=== PATIENT | female | born 1955 ===

== ENCOUNTER 2018-05-28 12:46 | Emergency (ER) | payer SELFPAY ==
[2018-05-28 13:02] VITALS: RESP 18; O2SAT 100
[2018-05-28] MEDS ORDERED: Iohexol 240 (50 ml) PO ONE (13:52)
[2018-05-28] MEDS ORDERED: Sodium Chloride 0.9% 1,000 ML IV STA (13:52)
--- NOTE | 2018-05-28 13:57 | ED PDOC ---
HPI: Abdomen Time Seen by Provider: 05/28/18 13:09 Chief Complaint (Nursing): Abdominal Pain Chief Complaint (Provider): Abdominal Pain History Per: Patient History/Exam Limitations: no limitations Onset/Duration Of Symptoms: Days Current Symptoms Are (Timing): Still Present Additional Complaint(s): 62 y/o female with no significant PMHx presents to the ED for evaluation of abdominal pain, onset two days ago. Patient reports pain is associated with nausea, vomiting, diarrhea, dizziness and fever since last night. Otherwise, patient denies chest pain, shortness of breath and leg pain. PMD: [facility] Past Medical History Reviewed: Historical Data, Nursing Documentation, Vital Signs Vital Signs: Last Vital Signs Temp 97.4 F L 05/28/18 13:00 Pulse 83 05/28/18 13:00 Resp 18 05/28/18 13:00 BP 144/90 05/28/18 13:00 Pulse Ox 100 05/28/18 13:00 - Medical History PMH: No Chronic Diseases - Surgical History Surgical History: No Surg Hx - Family History Family History: States: Unknown Family Hx - Immunization History Hx Influenza Vaccination: No Hx Pneumococcal Vaccination: No - Allergies Allergies/Adverse Reactions: Allergies Allergy/AdvReac Type Severity Reaction Status Date / Time pollen extracts Allergy ITCHING Verified 05/28/18 13:00 Review of Systems ROS Statement: Except As Marked, All Systems Reviewed And Found Negative Cardiovascular: Negative for: Chest Pain Respiratory: Negative for: Shortness of Breath Gastrointestinal: Positive for: Nausea, Vomiting, Abdominal Pain, Diarrhea Musculoskeletal: Negative for: Leg Pain Physical Exam - Reviewed Nursing Documentation Reviewed: Yes Vital Signs Reviewed: Yes - Physical Exam Appears: Positive for: Uncomfortable Head Exam: Positive for: ATRAUMATIC, NORMOCEPHALIC Skin: Positive for: Normal Color, Warm, Dry Eye Exam: Positive for: Normal appearance, EOMI, PERRL Neck: Positive for: Normal, Painless ROM Cardiovascular/Chest: Positive for: Regular Rate, Rhythm. Negative for: Murmur Respiratory: Positive for: Normal Breath Sounds. Negative for: Respiratory Distress Gastrointestinal/Abdominal: Positive for: Tenderness (Tenderness in the RUQ, LUQ and LLQ.) Extremity: Positive for: Normal ROM. Negative for: Deformity Neurological/Psych: Positive for: Awake, Alert, Oriented (x3). Negative for: Motor/Sensory Deficits - Laboratory Results Result Diagrams: 05/28/18 14:25 - ECG O2 Sat by Pulse Oximetry: 100 (RA) Pulse Ox Interpretation: Normal - Progress ED Course And Treament: 1451: Dr. David to take over care and fu with labs/imaging. Medical Decision Making Medical Decision Making: Time: 1351 Plan: -- CT Abd/Pelvis PO & IV Contrast -- CMP -- Lipase -- Troponin I -- ED Urine Dipstick -- CBC with Differentials -- Sodium Chloride IV 1000 mls/hr -- Iohexol 50 ml PO -- Pepcid 20 mg IVP -- Toradol 15 mf IVP -- Zofran Inj 4 mg IVP Scribe Attestation: Documented by Kate Baxter, acting as a scribe forHenrry Moon MD. Provider Scribe Attestation: All medical record entries made by the Scribe were at my direction and personally dictated by me. I have reviewed the chart and agree that the record accurately reflects my personal performance of the history, physical exam, medical decision making, and the department course for this patient. I have also personally directed, reviewed, and agree with the discharge instructions and disposition. Disposition - Clinical Impression Clinical Impression: Abdominal discomfort - Patient ED Disposition Is Patient to be Admitted: Transfer of Care - Disposition Disposition Time: 14:52 Condition: STABLE
[2018-05-28 14:35] LABS: BASO % 0.4 % (0.0-2.0); EOS % 0.1 % (0.0-4.0); LYMPH # 0.7 K/uL (1.0-4.3); LYMPH % 13.7 % (20.0-40.0); MEAN CELL VOLUME 93.6 fl (81.0-99.0); MEAN CORPUSCULAR HEMOGLOBIN 31.2 pg (27.0-31.0); MEAN CORPUSCULAR HGB CONC 33.3 g/dL (33.0-37.0); MEAN PLATELET VOLUME 8.7 fl (7.2-11.7); MONO # 0.4 K/uL (0.0-0.8); MONO % 8.4 % (0.0-10.0); NEUT # 3.9 K/uL (1.8-7.0); NEUT % 77.4 % (50.0-75.0); NRBC % 0.1 % (0.0-0.0); RBC 4.48 Mil/uL (3.80-5.20); RED CELL DISTRIBUTION WIDTH 14.7 % (11.5-14.5)
[2018-05-28 14:51] LABS: ALB/GLOB RATIO 1.2 (1.0-2.1); ALBUMIN 4.4 g/dL (3.5-5.0); ALT/SGPT 22 U/L (9-52); AST/SGOT 31 U/L (14-36); BLOOD UREA NITROGEN 16 mg/dl (7-17); CALCIUM 9.5 mg/dL (8.4-10.2); GFR NON-AFRICAN AMERICAN > 60; LIPASE 53 U/L (23-300)
--- NOTE | 2018-05-28 15:17 | ED PDOC ---
- Laboratory Results Result Diagrams: 05/28/18 14:25 05/28/18 14:25 Lab Results: Troponin I < 0.0120 ng/mL (0.00-0.120) 05/28/18 14:25 Total Bilirubin 0.8 mg/dl (0.2-1.3) 05/28/18 14:25 AST 31 U/L (14-36) 05/28/18 14:25 ALT 22 U/L (9-52) 05/28/18 14:25 Alkaline Phosphatase 136 U/L (38-126) H 05/28/18 14:25 Total Protein 8.0 G/DL (6.3-8.2) 05/28/18 14:25 Albumin 4.4 g/dL (3.5-5.0) 05/28/18 14:25 Globulin 3.6 gm/dL (2.2-3.9) 05/28/18 14:25 Albumin/Globulin Ratio 1.2 (1.0-2.1) 05/28/18 14:25 Lipase 53 U/L (23-300) 05/28/18 14:25 - ECG O2 Sat by Pulse Oximetry: 100 (RA) Pulse Ox Interpretation: Normal Medical Decision Making Medical Decision Making: Time: 1500 -- Patient endorsed to me by Dr. Moon, pending labs, CT, re-evaluation and final ER disposition. 17:00 CT Abdomen/Pelvis FINDINGS: LOWER THORAX: Unremarkable. LIVER: Normal size, contour and attenuation. Two nonspecific rounded low-attenuation lesions in the posterior right hepatic lobe, 1.2 and 1.5 cm, respectively. No biliary dilatation. GALLBLADDER AND BILE DUCTS: Unremarkable. PANCREAS: Unremarkable. No gross lesion or ductal dilatation. SPLEEN: Unremarkable. ADRENALS: Unremarkable. No mass. KIDNEYS AND URETERS: Unremarkable. No hydronephrosis. No solid mass. VASCULATURE: Unremarkable. No aortic aneurysm. No aortic atherosclerotic calcification or mural plaque present. BOWEL: Unremarkable. No obstruction. No gross mural thickening. APPENDIX: Normal appendix. PERITONEUM: Unremarkable. No free fluid. No free air. LYMPH NODES: Unremarkable. No enlarged lymph nodes. BLADDER: Unremarkable. REPRODUCTIVE: Unremarkable uterus. Pelvic varices are noted, left greater than right. This may correlate with pelvic congestion syndrome. BONES: No acute fracture. OTHER FINDINGS: None. IMPRESSION: No acute abnormality. Pelvic varices are noted which may correlate with pelvic congestion syndrome. Two small rounded nonspecific low-attenuation hepatic masses, 1.5 cm maximum diameter. No additional abnormality. 17:[address] shows pelvic varices/pelvic congestion. Patient is discharged home and was given referral [facility]. Return parameters discussed. Scribe Attestation: Documented by Kate Baxter, acting as a scribe Sharifa David MD. Provider Scribe Attestation: All medical record entries made by the Scribe were at my direction and personally dictated by me. I have reviewed the chart and agree that the record accurately reflects my personal performance of the history, physical exam, medical decision making, and the department course for this patient. I have also personally directed, reviewed, and agree with the discharge instructions and disposition. Scribe Attestation: Documented by Carissa June, acting as a scribe for Shavonne David MD Provider Scribe Attestation: All medical record entries made by the Scribe were at my direction and personally dictated by me. I have reviewed the chart and agree that the record accurately reflects my personal performance of the history, physical exam, med ica decision making, and the department course for this patient. I have also personally directed, reviewed, and agree with the discharge instructions and disposition. Disposition - Clinical Impression Clinical Impression: Abdominal discomfort, Pelvic congestion syndrome - POA Present On Arrival: None - Disposition [facility] Disposition: Routine/Home Disposition Time: 17:43 Condition: STABLE Additional Instructions: Follow up with primary medical doctor and with [facility] home [facility]. Take Motrin or Tylenol for pain. Return to the emergency department if symptoms worsen of if new symptoms develop. Forms: [employer] (Georgian) Print Language: SLOVENIAN
[2018-05-28] MEDS ORDERED: Iohexol 300 100 ML IJ ONE (16:40)
[2018-05-28] MEDS ORDERED: Sodium Chloride 0.9% 50 ML IV ONE (16:40)
--- NOTE | 2018-05-28 17:22 | CT ---
Date of service: 05/28/2018 PROCEDURE: CT Abdomen and Pelvis with contrast HISTORY: abd pain COMPARISON: Not available TECHNIQUE: Contrast dose: 85 mL Omnipaque 300 Radiation dose: Total exam DLP = 205.95 mGy-cm. This CT exam was performed using one or more of the following dose reduction techniques: Automated exposure control, adjustment of the mA and/or kV according to patient size, and/or use of iterative reconstruction technique. FINDINGS: LOWER THORAX: Unremarkable. LIVER: Normal size, contour and attenuation. Two nonspecific rounded low-attenuation lesions in the posterior right hepatic lobe, 1.2 and 1.5 cm, respectively. No biliary dilatation. GALLBLADDER AND BILE DUCTS: Unremarkable. PANCREAS: Unremarkable. No gross lesion or ductal dilatation. SPLEEN: Unremarkable. ADRENALS: Unremarkable. No mass. KIDNEYS AND URETERS: Unremarkable. No hydronephrosis. No solid mass. VASCULATURE: Unremarkable. No aortic aneurysm. No aortic atherosclerotic calcification or mural plaque present. BOWEL: Unremarkable. No obstruction. No gross mural thickening. APPENDIX: Normal appendix. PERITONEUM: Unremarkable. No free fluid. No free air. LYMPH NODES: Unremarkable. No enlarged lymph nodes. BLADDER: Unremarkable. REPRODUCTIVE: Unremarkable uterus. Pelvic varices are noted, left greater than right. This may correlate with pelvic congestion syndrome. BONES: No acute fracture. OTHER FINDINGS: None. IMPRESSION: No acute abnormality. Pelvic varices are noted which may correlate with pelvic congestion syndrome. Two small rounded nonspecific low-attenuation hepatic masses, 1.5 cm maximum diameter. No additional abnormality.
[2018-05-28 17:56] VITALS: BP 117/72; PULSE 72; TEMP 97.9
== END 2018-05-28 17:59 | disposition home or self-care (01) ==
LOC: H.ER 12:46
DX: N94.89 Other specified conditions associated with female genital organs and menstrual cycle (principal)
CPT/HCPCS: 74177; 80053; 83690; 84484; 85025; 96361; 96374; 96375; 99283; J1885; J2405; J7030; Q9966; Q9967

== ENCOUNTER 2018-05-31 14:49 | Emergency (ER) | payer SELFPAY ==
[2018-05-31 14:54] VITALS: BP 129/83; PULSE 81; RESP 16; TEMP 97.7; O2SAT 98
--- NOTE | 2018-05-31 15:20 | ED PDOC ---
HPI: Abdomen Time Seen by Provider: 05/31/18 15:03 Chief Complaint (Nursing): Abdominal Pain Chief Complaint (Provider): Abdominal pain History Per: Patient History/Exam Limitations: no limitations Onset/Duration Of Symptoms: Days Outside of [place] travel?: No Current Symptoms Are (Timing): Still Present Additional Complaint(s): 62yo female, comes to ER for evaluation of left upper quadrant pain, and reports an episode of small blood-tinged stool. Patient was evaluated in this ER 3 days ago, had a CT which showed no acute pathology other than pelvic congestion. She denies any fever, chills, vomiting and offers no additional complaints. PMD: [facility] Past Medical History Reviewed: Historical Data, Nursing Documentation, Vital Signs Vital Signs: Last Vital Signs Temp 97.7 F 05/31/18 14:51 Pulse 81 05/31/18 14:51 Resp 16 05/31/18 14:51 BP 129/83 05/31/18 14:51 Pulse Ox 98 05/31/18 14:51 - Surgical History Surgical History: No Surg Hx - Family History Family History: States: Unknown Family Hx - Immunization History Hx Influenza Vaccination: No Hx Pneumococcal Vaccination: No - Allergies Allergies/Adverse Reactions: Allergies Allergy/AdvReac Type Severity Reaction Status Date / Time pollen extracts Allergy ITCHING Verified 05/28/18 13:00 Review of Systems ROS Statement: Except As Marked, All Systems Reviewed And Found Negative Constitutional: Negative for: Fever, Chills Gastrointestinal: Positive for: Abdominal Pain, Hematochezia (1 small episode of blood tinged stool). Negative for: Nausea, Vomiting, Diarrhea Physical Exam - Reviewed Nursing Documentation Reviewed: Yes Vital Signs Reviewed: Yes - Physical Exam Appears: Positive for: Non-toxic, No Acute Distress Head Exam: Positive for: ATRAUMATIC, NORMAL INSPECTION, NORMOCEPHALIC Skin: Positive for: Normal Color, Warm, DRY Eye Exam: Positive for: EOMI, Normal appearance, PERRL Neck: Positive for: Normal, Painless ROM, Supple Cardiovascular/Chest: Positive for: Regular Rate, Rhythm. Negative for: Tachyc ardia Respiratory: Positive for: Normal Breath Sounds. Negative for: Respiratory Distress Gastrointestinal/Abdominal: Positive for: Soft, Tenderness (left upper quadrant). Negative for: Guarding, Rebound Back: Positive for: Normal Inspection Extremity: Positive for: Normal ROM. Negative for: Pedal Edema Neurological/Psych: Positive for: Awake, Alert, Normal Tone - Laboratory Results Result Diagrams: 05/31/18 15:45 05/31/18 15:45 - ECG O2 Sat by Pulse Oximetry: 98 (RA) Pulse Ox Interpretation: Normal Medical Decision Making Medical Decision Makinyo female with left upper quadrant pain plan: -- Labs -- Pepcid 20mg IV Scribe Attestation: Documented by Samara Soares, acting as a scribe for Loi Smith MD. Provider Scribe Attestation: All medical record entries made by the Scribe were at my direction and personally dictated by me. I have reviewed the chart and agree that the record accurately reflects my personal performance of the history, physical exam, medical decision making, and the department course for this patient. I have also personally directed, reviewed, and agree with the discharge instructions and disposition. Disposition - Clinical Impression Clinical Impression: Abdominal pain - Patient ED Disposition Is Patient to be Admitted: Transfer of Care - Disposition Disposition: Transfer of Care Disposition Time: 17:00 Condition: FAIR Forms: [employer] (Yemeni) Patient Signed Over To: Nataliia Kolb Handoff Comments: Pending repeat CBC at 7 PM
[2018-05-31 16:14] LABS: BASO % 0.5 % (0.0-2.0); EOS % 0.7 % (0.0-4.0); HEMOGLOBIN 12.4 g/dL (12.0-16.0); LYMPH # 1.2 K/uL (1.0-4.3); LYMPH % 44.8 % (20.0-40.0); MEAN CELL VOLUME 92.8 fl (81.0-99.0); MEAN CORPUSCULAR HEMOGLOBIN 30.9 pg (27.0-31.0); MEAN CORPUSCULAR HGB CONC 33.3 g/dL (33.0-37.0); MEAN PLATELET VOLUME 9.2 fl (7.2-11.7); MONO # 0.4 K/uL (0.0-0.8); MONO % 13.3 % (0.0-10.0); NEUT # 1.1 K/uL (1.8-7.0); NEUT % 40.7 % (50.0-75.0); NRBC % 0.3 % (0.0-0.0); RBC 4.01 Mil/uL (3.80-5.20); RED CELL DISTRIBUTION WIDTH 14.9 % (11.5-14.5); WHITE BLOOD COUNT 2.8 K/uL (4.8-10.8)
[2018-05-31 16:40] LABS: ALB/GLOB RATIO 1.5 (1.0-2.1); ALT/SGPT 27 U/L (9-52); AST/SGOT 28 U/L (14-36); BLOOD UREA NITROGEN 10 mg/dl (7-17); GFR NON-AFRICAN AMERICAN > 60
--- NOTE | 2018-05-31 17:17 | ED PDOC ---
- Laboratory Results Result Diagrams: 05/31/18 19:34 05/31/18 15:45 Lab Results: Total Bilirubin 0.4 mg/dl (0.2-1.3) 05/31/18 15:45 AST 28 U/L (14-36) 05/31/18 15:45 ALT 27 U/L (9-52) 05/31/18 15:45 Alkaline Phosphatase 109 U/L (38-126) 05/31/18 15:45 Total Protein 6.8 G/DL (6.3-8.2) 05/31/18 15:45 Albumin 4.0 g/dL (3.5-5.0) 05/31/18 15:45 Globulin 2.8 gm/dL (2.2-3.9) 05/31/18 15:45 Albumin/Globulin Ratio 1.5 (1.0-2.1) 05/31/18 15:45 - ECG O2 Sat by Pulse Oximetry: 98 (RA) Pulse Ox Interpretation: Normal Medical Decision Making Medical Decision Makin:00 Patient signed out to this provider by Dr. Smith pending repeat CBC at 19:00. If lhgb is stable, patient will be discharged home. 21:10 Repeat CBC shows hemoglobin stable. Her vitals are stable at this time. Patient will be discharged home w rx for pepcid. answered questions and need for oupt follow up in 1-2 days. Return precautions provided. -------- --------- Scribe Attestation: Documented by Radha Kelly, acting as a scribe for Nataliia Kolb MD Provider Scribe Attestation: All medical record entries made by the Scribe were at my direction and personally dictated by me. I have reviewed the chart and agree that the record accurately reflects my personal performance of the history, physical exam, medical decision making, and the department course for this patient. I have also personally directed, reviewed, and agree with the discharge instructions and di sposition Disposition Counseled Patient/Family Regarding: Studies Performed, Diagnosis, Need For Followup - Clinical Impression Clinical Impression: Abdominal pain - POA Present On Arrival: None - Disposition Disposition: Routine/Home Disposition Time: 21:12 Condition: IMPROVED Additional Instructions: follow up in the clinic in 2 days for reevaluation return to the ED with any worsening or concerning symptoms Prescriptions: Famotidine [Pepcid] 20 mg PO DAILY PRN #15 tab PRN Reason: Heartburn Instructions: Stomach Ache and Stomach Upset Forms: [employer] (Malaysian), [employer] (Estonian) Print Language: KENYAN
[2018-05-31 19:38] LABS: BASO % 0.5 % (0.0-2.0); EOS % 0.8 % (0.0-4.0); HEMOGLOBIN 12.3 g/dL (12.0-16.0); LYMPH # 1.5 K/uL (1.0-4.3); LYMPH % 53.2 % (20.0-40.0); MEAN CELL VOLUME 92.9 fl (81.0-99.0); MEAN CORPUSCULAR HEMOGLOBIN 30.8 pg (27.0-31.0); MEAN CORPUSCULAR HGB CONC 33.1 g/dL (33.0-37.0); MEAN PLATELET VOLUME 8.8 fl (7.2-11.7); MONO # 0.4 K/uL (0.0-0.8); NEUT # 0.9 K/uL (1.8-7.0); NEUT % 31.5 % (50.0-75.0); NRBC % 0.1 % (0.0-0.0); RBC 4.02 Mil/uL (3.80-5.20); RED CELL DISTRIBUTION WIDTH 14.6 % (11.5-14.5); WHITE BLOOD COUNT 2.8 K/uL (4.8-10.8)
== END 2018-05-31 22:06 | disposition home or self-care (01) ==
LOC: H.ER 14:49
DX: R10.9 Unspecified abdominal pain (principal)